=== PATIENT | female | born 1960 | race Caucasian/White ===

== ENCOUNTER → 2019-08-01 | Outpatient (CLI) | payer OTHER ==
[~2019-08-01] MED LIST: ASPIR 8181 MG PO; ATORVASTATIN CA40 MG PO; FISH OIL 1,001000 M2 PO; LEVAQUIN 500 M500 M1 PO; LOPRESSOR50 PO; METFORMIN HCL500 MG PO; NITROGLYCERIN0.4 MG SUBLING; PLAVIX 75 MG TA75 M1 PO; SIMVASTATIN40 MG PO; TESSALON PERLE100 MG PO; TRIAMTERENE-HC1 EAC1 PO; VITAMIN B-12500 MCG PO; VITAMINC500 PO; ZESTORETIC 10-1 EACH PO
--- NOTE | 2019-08-01 17:27 | EXE ---
[place] [address] STRESS ECHOCARDIOGRAM Name: VELIA ZAMORA Leighann Room: [facility]#: [id number] Admission: 08/01/19 Attend Phys: Wyatt Contreras MD Discharge: Date of : 56 Date of Service: 08/01/19 1726 Report #: [id number] THIS REPORT FOR: cc: Clarence Morrison Steve T. DO Blick, David R. MD [facility] ~ THIS REPORT FOR: //name// APPROVED REPORT Study performed: 08/01/2019 16:07:00 Exam: Dobutamine Stress Echo Indication: CAD Patient Location: Out-Patient Stress Nurse: Sharla Cano RN Supervising Physician: Wyatt Contreras MD Ht: 5 ft 4 in HR: 75 bpm BP: 116/66 mmHg Medical History Cardiac Risk Factors: Hyperlipidemia, HTN, DM, FHX of CAD Procedure The patient underwent a Pharmacological Stress Test using Dobutamine. Blood pressure, heart rate, and EKG were monitored. An Echocardiogram was performed by cell technician in four stages in quad fashion. At peak stress, four selected images were obtained and placed side by side with resting images for comparison. Stress Test Details Stress Test: Pharmacological Stress Test using Dobutamine. Reason for pharmacologic stress test: physical limitation. HR Resting HR: 75 bpm Max Heart Rate (APMHR): 160 bpm Max HR Achieved: 150 bpm Target HR (85% APMHR): 136 bpm % of APMHR: 93 Recovery HR: 85 bpm HR response to stress: [place] [address] STRESS ECHOCARDIOGRAM Name: JULYPOWERVELIA L Room: [facility]#: [id number] Admission: 08/01/19 Attend Phys: Wyatt Contreras MD Discharge: Date of : 56 Date of Service: 08/01/19 1726 Report #: [id number] Resting BP: 116/66 mmHg Max BP: 173/47 mmHg Recovery BP: 170/77 mmHg BP response to stress: Normal blood pressure response to stress. ECG Resting ECG: Sinus Rhythm Stress ECG: Sinus Rhythm ST Change: Upsloping ST depression Maximum ST Deviation: 1 mm Arrhythmia: None Recovery ECG: Sinus Rhythm Recovery ST Change: Downsloping ST depression Recovery ST Deviation: 0.5 mm Recovery Arrhythmia: None Pre-Stress Echo The resting Echocardiogram showed normal left ventricular contractility with an estimated Ejection Fraction of about 55-60%. Post-Stress Echo The stress Echocardiogram showed normal left ventricular contractility with an estimated Ejection Fraction of about >70%. Compared to rest, there were no stress-induced wall motion abnormalities. Conclusion Clinical Response: Non-ischemic Stress ECG Response: Equivocal Stress Echo Images: Non-ischemic low risk stress dobutamine echo for predicting future cardiac events. Other Information Study Quality: Fair <Conclusion> low risk stress dobutamine echo for predicting future cardiac events. <ELECTRONICALLY SIGNED> By: Wyatt Contreras MD, [facility] 08/01/19 1726 25 172 Wyatt Contreras MD, FAC /INF
== END ==
LOC: M.CRD 14:46
DX: I25.10 Atherosclerotic heart disease of native coronary artery without angina pectoris (principal); Z88.2 Allergy status to sulfonamides; Z88.6 Allergy status to analgesic agent

== ENCOUNTER 2019-08-23 16:14 | Inpatient (IN) | payer OTHER ==
[~2019-08-23] VITALS: Ht 162.6 cm; Wt 83.0 kg
[~2019-08-23 16:14] MED LIST changes: -ATORVASTATIN CA40 MG PO; +LIPITOR40 MG PO
[2019-08-23 16:23] VITALS: BP 147/72
[2019-08-23 16:45] LABS: ABSOLUTE EOSINOPHILS 0.2 thou/uL (0.0-0.7); ABSOLUTE LYMPHOCYTES 2.4 thou/uL (0.8-5.3); ABSOLUTE MONOCYTES 0.5 thou/uL (0.0-1.2); ABSOLUTE NEUTROPHILS 4.9 thou/uL (1.6-8.1); BASOPHILS 0.6 %; EOSINOPHILS 1.9 %; HEMATOCRIT 36.3 % (37.0-47.0); HEMOGLOBIN 12.5 gm/dL (12.0-15.0); LYMPHOCYTES 29.7 %; MCH 30.9 pg (26.0-34.0); MCHC 34.3 g/dL (28.0-37.0); MCV 90.1 fL (80.0-100.0); MONOCYTES 6.2 %; MPV 7.7 fl. (7.2-11.1); NUCLEATED RBCS 0 /100WBC; PLATELET COUNT* 295 thou/uL (150-400); POLYS 61.6 %; RBC 4.03 mil/uL (4.20-5.00); RDW-CV 13.1 % (10.5-14.5); WBC 7.9 thou/uL (4.0-11.0)
[2019-08-23 16:53] LABS: CALCIUM 9.2 mg/dL (8.5-10.1); CREATININE 1.1 mg/dL (0.6-1.3); POTASSIUM 3.8 mmol/L (3.5-5.1)
[2019-08-23 16:58] LABS: APTT 20.3 Seconds (25.0-31.3); PROTIME 10.7 Seconds (9.20-11.50)
[2019-08-23 17:04] LABS: MAGNESIUM 1.3 mg/dL (1.8-2.4); TOTAL BILIRUBIN 0.5 mg/dL (<0.1-1.0); TOTAL PROTEIN 7.1 g/dL (6.4-8.2)
--- NOTE | 2019-08-23 18:59 | NUR ---
REPORT GIVEN TO MAYRA THOMAS WHO IS TO ASSUME PT CARE AT THIS TIME.
--- NOTE | 2019-08-23 19:46 | NUR ---
REPORT CALLED TO JENNIFER PT TO BE TAKEN TO ROOM 208
[2019-08-23 20:00] VITALS: BP 146/71
--- NOTE | 2019-08-23 20:00 | NUR ---
RECEIVED REPORT FROM ER. PT TO ROOM WITH BELONGINGS AND AT BEDSIDE. PT DENIES ALL COMPLAINTS OF CHEST PAIN, SOB, DIAPHORESIS OR NAUSEA. TELEMETRY APPLIED SHOWING ST TO SR. SEE ADMISSION ASSESSMENT AND HX. DISCUSSED HAVING POSS TEST TOMORROW SO NPO AFTER MN. WILL CONT TO MONITOR AND ASSIST NEEDED.
[2019-08-23 20:07] VITALS: BP 144/79
[2019-08-23] MEDS ORDERED: TYLENOL (21:07)
[2019-08-23] MEDS ORDERED: TYLENOL325 M1 PO (21:08)
[2019-08-23] MEDS ORDERED: METFORMIN HCL500 MG PO (21:10)
[2019-08-23 23:14] LABS: CALCIUM 9.7 mg/dL (8.5-10.1); MAGNESIUM 1.5 mg/dL (1.8-2.4); POTASSIUM 3.5 mmol/L (3.5-5.1)
[2019-08-24 00:17] VITALS: BP 121/61
[2019-08-24 04:42] VITALS: BP 133/74
--- NOTE | 2019-08-24 06:20 | NUR ---
SLEPT WELL. GAIT STEADY TO AND FROM BR WITH STEADY GAIT. DENIES ANY COMPLAINTS. KEPT PT NPO SINCE [place] FOR POSS TEST THIS AM. HS GOALS OF REST AND SAFETY ACHIEVED. HOURLY ROUNDING OBSERVED.
[2019-08-24 08:00] VITALS: BP 130/77
[2019-08-24 12:29] VITALS: BP 130/77
--- NOTE | 2019-08-24 13:52 | CON ---
[address] [address] CONSULTATION Name: VELIA ZAMORA Room: [address] IN .R.#: [id number] Admission: 08/23/19 Attend Phys: Lizbet Zhao Discharge: Date of : 56 Report #: [id number] THIS REPORT FOR: //name// cc: Clarence Morrison Steve T. DO THIS REPORT FOR: //name// CC: Wyatt Brown DATE OF SERVICE: 08/24/2019 CARDIOLOGY CONSULTATION HISTORY OF PRESENT ILLNESS: The patient is a 58-year-old white female who I was asked to see in the hospital today after she was noted to be tachycardic. The patient initially presented in 2015 with chest pain. I placed a stent in her LAD. She has done well since that time. She goes to the gym regularly. She denied any recent chest pain, shortness of breath, syncope. I actually just saw her in Cardiology Clinic a month ago. She underwent a stress dobutamine echocardiogram 08/01. She could not exercise on the treadmill because of arthritis. Her peak heart rate was 150. She did develop nonspecific ST-segment changes with dobutamine stress. Ejection fraction was normal at rest. With dobutamine stress, there were no wall motion abnormalities with an ejection fraction greater than 70%. She denied any chest pain during dobutamine stress. This is felt to be a low-risk dobutamine stress echocardiogram for predicting future cardiac events. The patient was doing well until yesterday. She was at work. She noticed on her Fitbit that her heart rate was 115. She felt somewhat diaphoretic. Her son brought her to the hospital and she was admitted. Her blood sugar was noted to be elevated. She denied any recent vomiting, fever, diarrhea or bleeding. She had no chest discomfort, shortness of breath. PAST MEDICAL HISTORY: She has had a tonsillectomy, previous lumpectomy. She has a history of hypertension, diabetes, and hyperlipidemia. MEDICATIONS: Include aspirin, Lipitor, metformin, metoprolol, Maxzide. ALLERGIES: SHE HAS AN ALLERGY TO SULFA DRUGS. FAMILY HISTORY: Her mother had diabetes. SOCIAL HISTORY: She is . She and her live in [place]. 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 She is nonsmoker[place] [address] CONSULTATION Name: VELIA ZAMORA Room: [address]#: [id number] Admission: 08/23/19 Attend Phys: Lizbet Zhao Discharge: Date of : 56 Report #: [id number] REVIEW OF SYSTEMS: She has had no history of stroke, asthma, peptic ulcer disease, liver disease, kidney disease, cancer, psychiatric illness, chronic skin condition. PHYSICAL EXAMINATION: GENERAL: Revealed a middle-aged female, who appeared in no distress. VITAL SIGNS: Her blood pressure is 140/70, pulse is 90. She is afebrile. HEENT: She was anicteric. Conjunctivae are pink. Mucous membranes moist. NECK: Veins nondistended. No carotid bruits. CHEST: Clear to auscultation. CARDIOVASCULAR: Regular rate and rhythm, without murmur. ABDOMEN: Soft. EXTREMITIES: Had no edema. Dorsalis pedis pulse 2+ bilaterally. SKIN: Warm, dry. NEUROLOGIC: Nonfocal. RADIOLOGICAL DATA: Her ECG showed a sinus rhythm, nonspecific ST-segment changes were noted and compared to previous ECG in [address]-segment changes were less prominent. Her workup in the Emergency Room yesterday, she had a portable chest x-ray that showed normal heart size, clear lung merlos. LABORATORY DATA: Her lab work last night, sodium 139, BUN is 15, creatinine 1.0, glucose 228. Her liver function studies were normal. Troponins were all 0.06. BNP 66. Previous TSH in 2017 is 4.4. Her white blood cell count 7.9, hematocrit 36.3. IMPRESSION AND RECOMMENDATIONS: 1. Tachycardic. No significant arrhythmia noted. I would not treat at this time. 2. Episode of diaphoresis. Recent stress echocardiogram showed no evidence of ischemia. 3. Previous stent. I would continue aspirin a day. 4. Hypertension. The patient is on a beta garret and diuretic. Because of her vascular disease, I will consider adding an JESSICA inhibitor. 5. Diabetes. 6. Hyperlipidemia. The patient is on a statin drug. I think it is reasonable to discharge the patient at this time. I have recommended she will follow up with my nurse practitioner. <ELECTRONICALLY SIGNED> By: Wyatt Contreras MD, FACC 08/24/19 1352 0821 [id number] Contreras MD, FACC /nt
--- NOTE | 2019-08-24 17:28 | NUR ---
PATIENT DISCHARGED TO HOME DISCHARGE INFORMATION GIVEN, ACKNOWLEDGED, SIGNED COPIES GIVEN IV AND HEART MONITOR REMOVED PERSONAL BELONGINGS RETURNED PATIENT WALKED OUT TO [employer]
--- NOTE | 2019-08-31 14:58 | EKG ---
[place] [address] ELECTROCARDIOGRAM REPORT Name: VELIA ZAMORA Room: [address] IN .R.#: [id number] Admission: 08/23/19 Attend Phys: Randell Vaughn Discharge: 08/24/19 Date of : 56 Date of Service: 08/23/19 1620 Report #: [id number] THIS REPORT FOR: //name// [facility] ED Test Date: 2019-08-23 Test Time: 16:20:01 Pat Name: VELIA ZAMORA Department: Room: [facility] Gender: F Pen Tester: ROBERT : 1960 Requested By: Pa Barron Order Number: [id number] MD: Wyatt Contreras Measurements Intervals [place] Rate: 90 P: 68 OR: 130 QRS: 78 QRSD: 90 T: 44 QT: 366 QTc: 448 Interpretive Statements Sinus rhythm Consider left atrial enlargement Borderline T wave abnormalities Compared to ECG 06/13/2016 16:35:26 Possible ischemia no longer present Prolonged QT interval no longer present Electronically Signed On 08-24-2019 9:39:14 [employer] ARCHITECT by Wyatt Contreras [email or web address] <ELECTRONICALLY SIGNED> By: Wyatt Contreras MD, FACC 08/24/19 0939 1620 1620 Wyatt Contreras MD, FAC /EPI
== END 2019-08-24 17:30 | disposition home or self-care (01) | DRG 310 ==
LOC: M.ERS 16:14 → M.2W 17:38 → M.TBA-ER 17:38 → M.2W 20:35
PROVIDERS: Emergency Medicine Emergency Medical Services; ADMIT Internal Medicine
DX: R00.0 Tachycardia, unspecified (principal); E88.81 Metabolic syndrome and other insulin resistance; E11.9 Type 2 diabetes mellitus without complications; I25.10 Atherosclerotic heart disease of native coronary artery without angina pectoris; F41.9 Anxiety disorder, unspecified; E78.00 Pure hypercholesterolemia, unspecified; I10 Essential (primary) hypertension; M19.90 Unspecified osteoarthritis, unspecified site; R61 Generalized hyperhidrosis; E78.5 Hyperlipidemia, unspecified; F12.90 Cannabis use, unspecified, uncomplicated; Z95.5 Presence of coronary angioplasty implant and graft; Z79.84 Long term (current) use of oral hypoglycemic drugs; Z79.899 Other long term (current) drug therapy; Z88.1 Allergy status to other antibiotic agents; Z88.2 Allergy status to sulfonamides; Z79.82 Long term (current) use of aspirin; Z83.3 Family history of diabetes mellitus; Z85.828 Personal history of other malignant neoplasm of skin; Z85.89 Personal history of malignant neoplasm of other organs and systems; Z72.89 Other problems related to lifestyle

== ENCOUNTER 2019-08-25 10:27 | Inpatient (IN) | payer OTHER ==
[~2019-08-25] VITALS: Ht 162.6 cm; Wt 89.4 kg
[~2019-08-25 10:27] MED LIST changes: +TYLENOL; +TYLENOL325 M1 PO
[2019-08-25 10:35] VITALS: BP 128/57
[2019-08-25 11:24] LABS: ABSOLUTE LYMPHOCYTES 1.5 thou/uL (0.8-5.3); ABSOLUTE MONOCYTES 0.5 thou/uL (0.0-1.2); ABSOLUTE NEUTROPHILS 10.5 thou/uL (1.6-8.1); BASOPHILS 0.3 %; EOSINOPHILS 0.2 %; HEMATOCRIT 26.5 % (37.0-47.0); LYMPHOCYTES 11.6 %; MCH 30.7 pg (26.0-34.0); MCHC 33.6 g/dL (28.0-37.0); MCV 91.3 fL (80.0-100.0); MONOCYTES 3.9 %; MPV 7.7 fl. (7.2-11.1); NUCLEATED RBCS 0 /100WBC; PLATELET COUNT* 304 thou/uL (150-400); RDW-CV 13.4 % (10.5-14.5); WBC 12.5 thou/uL (4.0-11.0)
[2019-08-25 11:25] LABS: HEMOGLOBIN 8.9 gm/dL (12.0-15.0)
[2019-08-25 11:32] LABS: CALCIUM 8.6 mg/dL (8.5-10.1); CREATININE 1.1 mg/dL (0.6-1.3)
[2019-08-25 11:33] LABS: APTT 20.9 Seconds (25.0-31.3); PROTIME 10.5 Seconds (9.20-11.50)
[2019-08-25 11:43] LABS: ALBUMIN 3.5 g/dL (3.4-5.0); TOTAL BILIRUBIN 0.2 mg/dL (<0.1-1.0); TOTAL PROTEIN 6.3 g/dL (6.4-8.2)
[2019-08-25 13:40] LABS: URINE BILIRUBIN NEGATIVE (Negative); URINE BLOOD NEGATIVE (Negative); URINE CLARITY CLEAR; URINE COLOR YELLOW; URINE GLUCOSE-RANDOM 1+ (Negative); URINE KETONES TRACE (Negative); URINE LEUKOCYTES-REFLEX NEGATIVE (Negative); URINE NITRITE-REFLEX NEGATIVE (Negative); URINE PROTEIN NEGATIVE (Negative); URINE SPECIFIC GRAVITY <= 1.005 (1.005-1.030); URINE UROBILINOGEN 0.2 E.U./dl (0.2-1.0)
[2019-08-25 18:04] VITALS: BP 116/63
[2019-08-25 19:45] VITALS: BP 104/57
[2019-08-25 20:30] VITALS: BP 122/63
[2019-08-26] VITALS (9 sets, daily range): BP systolic 106–146; BP diastolic 54–66
[2019-08-26 04:44] LABS: MCH 31.6 pg (26.0-34.0); MCHC 34.1 g/dL (28.0-37.0); MCV 92.8 fL (80.0-100.0); MPV 7.9 fl. (7.2-11.1); RBC 1.43 mil/uL (4.20-5.00); RDW-CV 13.3 % (10.5-14.5)
[2019-08-26 04:44] LABS: AMP/METHAMP Negative (Negative); BARBITURATES Negative (Negative); BENZODIAZEPINES Negative (Negative); COCAINE Negative (Negative); METHADONE Negative (Negative); OPIATES Negative (Negative); PCP Negative (Negative); THC Negative (Negative)
[2019-08-26 04:53] LABS: INR 1.1; PROTIME 11.5 Seconds (9.20-11.50)
[2019-08-26 05:09] LABS: HEMATOCRIT 13.3 % (37.0-47.0); HEMOGLOBIN 4.5 gm/dL (12.0-15.0)
[2019-08-26 06:49] LABS: HEMOGLOBIN 4.3 gm/dL (12.0-15.0)
[2019-08-26 06:50] LABS: HEMATOCRIT 12.5 % (37.0-47.0)
[2019-08-26 07:10] LABS: ALBUMIN 2.7 g/dL (3.4-5.0); CALCIUM 7.1 mg/dL (8.5-10.1); CREATININE 0.9 mg/dL (0.6-1.3); MAGNESIUM 1.5 mg/dL (1.8-2.4); PHOSPHORUS* 2.6 mg/dL (2.5-4.9); POTASSIUM 3.6 mmol/L (3.5-5.1)
[2019-08-26 15:46] LABS: MCH 31.2 pg (26.0-34.0); MCHC 34.8 g/dL (28.0-37.0); MCV 89.6 fL (80.0-100.0); MPV 7.8 fl. (7.2-11.1); RBC 1.99 mil/uL (4.20-5.00); RDW-CV 14.3 % (10.5-14.5); WBC 10.8 thou/uL (4.0-11.0)
[2019-08-26 15:50] LABS: HEMATOCRIT 17.9 % (37.0-47.0); HEMOGLOBIN 6.2 gm/dL (12.0-15.0)
[2019-08-26 23:03] LABS: MCH 29.6 pg (26.0-34.0); MCHC 33.4 g/dL (28.0-37.0); MCV 88.5 fL (80.0-100.0); MPV 8.1 fl. (7.2-11.1); RBC 1.87 mil/uL (4.20-5.00); RDW-CV 16.1 % (10.5-14.5)
[2019-08-26 23:05] LABS: HEMOGLOBIN 5.5 gm/dL (12.0-15.0)
[2019-08-26 23:06] LABS: HEMATOCRIT 16.5 % (37.0-47.0)
[2019-08-27 00:51] VITALS: BP 110/48; BP 117/64; BP 135/63; BP 138/68
[2019-08-27 05:30] LABS: MCH 28.8 pg (26.0-34.0); MCHC 33.3 g/dL (28.0-37.0); MCV 86.5 fL (80.0-100.0); MPV 7.8 fl. (7.2-11.1); RBC 2.07 mil/uL (4.20-5.00); WBC 16.6 thou/uL (4.0-11.0)
[2019-08-27 05:42] LABS: HEMATOCRIT 17.9 % (37.0-47.0)
[2019-08-27 06:22] VITALS: BP 130/76; BP 132/51; BP 132/69; BP 141/71; BP 149/75
[2019-08-27 08:00] VITALS: BP 130/76
[2019-08-27 14:38] LABS: MCH 29.5 pg (26.0-34.0); MCV 86.8 fL (80.0-100.0); RBC 2.1 mil/uL (4.20-5.00); RDW-CV 15.2 % (10.5-14.5); WBC 12.5 thou/uL (4.0-11.0)
[2019-08-27 14:40] LABS: HEMATOCRIT 18.2 % (37.0-47.0); HEMOGLOBIN 6.2 gm/dL (12.0-15.0)
[2019-08-27 16:40] VITALS: BP 129/54
[2019-08-27 19:02] LABS: HEMATOCRIT 16.8 % (37.0-47.0); HEMOGLOBIN 5.7 gm/dL (12.0-15.0)
[2019-08-27 19:43] VITALS: BP 104/56; BP 108/58; BP 112/60; BP 115/57; BP 119/57
[2019-08-27 19:45] VITALS: BP 119/57
[2019-08-27 23:21] LABS: MCH 29.8 pg (26.0-34.0); MCHC 34.6 g/dL (28.0-37.0); MCV 86.2 fL (80.0-100.0); MPV 7.5 fl. (7.2-11.1); NUCLEATED RBCS 0 /100WBC; PLATELET COUNT* 107 thou/uL (150-400); RDW-CV 14.6 % (10.5-14.5); WBC 9.9 thou/uL (4.0-11.0)
[2019-08-27 23:24] LABS: HEMOGLOBIN 6.6 gm/dL (12.0-15.0)
[2019-08-28] VITALS: BP 133/56
[2019-08-28 00:39] VITALS: BP 107/55; BP 108/59; BP 114/52; BP 116/66; BP 117/52
[2019-08-28 01:16] LABS: ABSOLUTE EOSINOPHILS 0.4 thou/uL (0.0-0.7); ABSOLUTE LYMPHOCYTES 1.5 thou/uL (0.8-5.3); ABSOLUTE MONOCYTES 0.9 thou/uL (0.0-1.2); ABSOLUTE NEUTROPHILS 7.1 thou/uL (1.6-8.1)
[2019-08-28 01:17] LABS: PLATELET ESTIMATE DECREASED
[2019-08-28 01:18] LABS: ANISOCYTOSIS 1+; POLYCHROMASIA 1+
[2019-08-28 04:00] VITALS: BP 107/57; BP 129/52
[2019-08-28 06:11] LABS: HEMATOCRIT 22.4 % (37.0-47.0); HEMOGLOBIN 7.7 gm/dL (12.0-15.0); MCH 29.5 pg (26.0-34.0); MCHC 34.5 g/dL (28.0-37.0); MCV 85.4 fL (80.0-100.0); MPV 7.4 fl. (7.2-11.1); RBC 2.62 mil/uL (4.20-5.00); RDW-CV 14.5 % (10.5-14.5); WBC 9.3 thou/uL (4.0-11.0)
[2019-08-28 06:26] LABS: CALCIUM 6.7 mg/dL (8.5-10.1); CREATININE 0.6 mg/dL (0.6-1.3); POTASSIUM 3.1 mmol/L (3.5-5.1); TOTAL BILIRUBIN 0.4 mg/dL (<0.1-1.0); TOTAL PROTEIN 3.9 g/dL (6.4-8.2)
[2019-08-28 08:00] VITALS: BP 124/58
[2019-08-28 11:19] VITALS: BP 123/61
[2019-08-28 20:00] VITALS: BP 119/56
[2019-08-29] VITALS: BP 130/70
[2019-08-29 04:00] VITALS: BP 134/61
[2019-08-29 05:15] LABS: HEMATOCRIT 22.2 % (37.0-47.0); HEMOGLOBIN 7.6 gm/dL (12.0-15.0); MCHC 34.4 g/dL (28.0-37.0); MCV 87.1 fL (80.0-100.0); MPV 7.5 fl. (7.2-11.1); RBC 2.55 mil/uL (4.20-5.00); RDW-CV 14.3 % (10.5-14.5); WBC 5.9 thou/uL (4.0-11.0)
[2019-08-29 05:29] LABS: ALBUMIN 2.1 g/dL (3.4-5.0); CALCIUM 6.9 mg/dL (8.5-10.1); CREATININE 0.7 mg/dL (0.6-1.3); TOTAL BILIRUBIN 0.3 mg/dL (<0.1-1.0); TOTAL PROTEIN 4.3 g/dL (6.4-8.2)
[2019-08-29 05:31] LABS: POTASSIUM 2.9 mmol/L (3.5-5.1)
[2019-08-29 08:00] VITALS: BP 137/58
[2019-08-29] MEDS ORDERED: LASIX 40 MG TAB40 M1 PO (10:56)
[2019-08-29] MEDS ORDERED: XANAX 0.25 MG0.25 MG PO (10:56)
[2019-08-29 11:19] VITALS: BP 138/68
[2019-08-29 12:46] VITALS: BP 138/68
[2019-08-29 16:31] VITALS: BP 137/68
--- NOTE | 2019-08-31 14:59 | EKG ---
[place] [address] ELECTROCARDIOGRAM REPORT Name: OBEYVELIA CONROY Leighann Room: [address] IN M.R.#: [id number] Admission: 08/25/19 Attend Phys: Raj phipps Sa Discharge: 08/29/19 Date of : 56 Date of Service: 08/25/19 1051 Report #: [id number] THIS REPORT FOR: //name// [facility] ED Test Date: 2019-08-25 Test Time: 10:51:14 Pat Name: VELIA ZAMORA Department: Room: [facility] Gender: F Superintendent [employer]: : 1960 Requested By: Juan Carlos Hassan Order Number: [id number] MD: Wyatt Contreras Measurements Intervals [place] Rate: 89 P: 52 VA: 136 QRS: 44 QRSD: 92 T: 268 QT: 379 QTc: 462 Interpretive Statements Sinus rhythm Nonspecific T abnormalities, diffuse leads Compared to ECG 08/23/2019 16:20:01 No significant changes Electronically Signed On 08-26-2019 11:04:26 PHYSICAL SECURITY ENGINEER by Wyatt Contreras [email or web address] <ELECTRONICALLY SIGNED> By: Wyatt Contreras MD, [facility] 08/26/19 1104 1051 1051 Wyatt Contreras MD, [facility] /EPI
--- NOTE | 2019-09-04 13:54 | CON ---
[address] [address] CONSULTATION Name: VELIA ZAMORA Room: [address] M.R.#: [id number] Admission: 08/25/19 Attend Phys: Raj Rapp Discharge: 08/29/19 Date of : 56 Report #: [id number] THIS REPORT FOR: //name// cc: Clarence Morrison Steve T. DO THIS REPORT FOR: //name// CC: Wyatt Munguia DO DATE OF SERVICE: 08/26/2019 REQUESTING PHYSICIAN: Dr. Ochoa. REASON FOR CONSULT: Melanotic stool and significant drop in hemoglobin. HISTORY OF PRESENT ILLNESS: This is a 58-year-old female with history of coronary artery disease, status post stenting in 2016, who reports that she took Plavix for a year, but currently is only on baby aspirin and fish oil. She was recently in the hospital for chest pain, which was noncardiac and she was discharged shortly after. Her hemoglobin on that day was 12.7. The patient was not feeling good and had melanotic stool, therefore she returned to hospital. Her hemoglobin in the ER was 8.9. She was admitted for GI bleed and today, her hemoglobin is 4.3. The patient denies any nausea, vomiting, hematemesis or abdominal pain. PAST MEDICAL HISTORY: Significant for history of diabetes mellitus, hypertension, coronary artery disease, status post stenting, anemia, hyperlipidemia, skin cancer. ALLERGIES: SIGNIFICANT TO BACTRIM. MEDICATIONS: Please refer to MAR. SOCIAL HISTORY: The patient is and lives at home. Denies tobacco or alcohol use. She reports that she had a colonoscopy in April by Dr. Ramos. PHYSICAL EXAMINATION: VITAL SIGNS: Reveals normal vitals. LUNGS: Clear. CARDIOVASCULAR: Regular. ABDOMEN: Soft, nontender, nondistended[place] [address] CONSULTATION Name: VELIA ZAMORA Room: [address] IN ..#: [id number] Admission: 08/25/19 Attend Phys: Raj phipps [place] Discharge: 08/29/19 Date of : 56 Report #: [id number] LABORATORY DATA: Reveal sodium of 146, potassium of 3.6, BUN 33, creatinine 0.9, glucose 279. Liver function tests are all within normal limits. Magnesium is low at 1.5, calcium is 7.1, albumin is 2.7. WBC is 10.0, hemoglobin 4.3, but she has been transfused with 2 units and platelet is 187. ASSESSMENT AND PLAN: We will complete the patient's transfusion to get her hemoglobin above 7 and consider upper endoscopy. If we do not find anything, we will consider looking at her colon and if negative, we will proceed with capsule endoscopy. I will make further recommendation based on finding in the upper scope. <ELECTRONICALLY SIGNED> By: Georgia Arciniega MD 09/04/19 1354 1123 [id number] Arciniega MD /nt
== END 2019-08-29 18:17 | disposition home or self-care (01) | DRG 377 ==
LOC: M.ERS 10:27 → M.TBA-ER 14:04 → M.2W 14:04
PROVIDERS: Family Medicine; Internal Medicine; Internal Medicine Gastroenterology; ADMIT Family Medicine
PROC: 30233N1 Transfusion of Nonautologous Red Blood Cells into Peripheral Vein, Percutaneous Approach (ICD-10-PCS; principal; 2019-08-26)
PROC: 0DJ08ZZ Inspection of Upper Intestinal Tract, Via Natural or Artificial Opening Endoscopic (ICD-10-PCS; 2019-08-28)
DX: K57.11 Diverticulosis of small intestine without perforation or abscess with bleeding (principal); R65.11 Systemic inflammatory response syndrome (SIRS) of non-infectious origin with acute organ dysfunction; D62 Acute posthemorrhagic anemia; E87.2 Acidosis; E44.1 Mild protein-calorie malnutrition; E11.9 Type 2 diabetes mellitus without complications; E78.00 Pure hypercholesterolemia, unspecified; I10 Essential (primary) hypertension; I25.10 Atherosclerotic heart disease of native coronary artery without angina pectoris; E78.5 Hyperlipidemia, unspecified; E66.9 Obesity, unspecified; K76.0 Fatty (change of) liver, not elsewhere classified; K44.9 Diaphragmatic hernia without obstruction or gangrene; Z68.33 Body mass index [BMI] 33.0-33.9, adult; Z95.5 Presence of coronary angioplasty implant and graft; Z79.82 Long term (current) use of aspirin; Z79.84 Long term (current) use of oral hypoglycemic drugs; Z79.899 Other long term (current) drug therapy; Z88.2 Allergy status to sulfonamides; Z88.8 Allergy status to other drugs, medicaments and biological substances

== ENCOUNTER 2019-08-31 14:53 | Inpatient (IN) | payer OTHER ==
[~2019-08-31] VITALS: Ht 162.6 cm; Wt 86.8 kg
[~2019-08-31 14:53] MED LIST changes: +LASIX 40 MG TAB40 M1 PO; +XANAX 0.25 MG0.25 MG PO
[2019-08-31 15:01] VITALS: BP 96/54
[2019-08-31] MEDS ORDERED: PROTONIX40 M4 PO (15:04)
[2019-08-31 16:00] LABS: ABSOLUTE EOSINOPHILS 0.2 thou/uL (0.0-0.7); ABSOLUTE LYMPHOCYTES 1.5 thou/uL (0.8-5.3); ABSOLUTE MONOCYTES 0.7 thou/uL (0.0-1.2); ABSOLUTE NEUTROPHILS 8.8 thou/uL (1.6-8.1); BASOPHILS 0.2 %; EOSINOPHILS 1.5 %; HEMATOCRIT 21.4 % (37.0-47.0); LYMPHOCYTES 13.5 %; MCH 29.4 pg (26.0-34.0); MCHC 32.6 g/dL (28.0-37.0); MCV 90.2 fL (80.0-100.0); MPV 8.6 fl. (7.2-11.1); NUCLEATED RBCS 0 /100WBC; PLATELET COUNT* 234 thou/uL (150-400); POLYS 78.8 %; RBC 2.38 mil/uL (4.20-5.00); RDW-CV 14.8 % (10.5-14.5); WBC 11.2 thou/uL (4.0-11.0)
[2019-08-31 16:09] LABS: CALCIUM 8.3 mg/dL (8.5-10.1); CREATININE 1.1 mg/dL (0.6-1.3); POTASSIUM 3.1 mmol/L (3.5-5.1)
[2019-08-31 16:10] LABS: APTT 19.6 Seconds (25.0-31.3); INR 0.9; PROTIME 9.6 Seconds (9.20-11.50)
[2019-08-31 16:13] LABS: ALBUMIN 2.8 g/dL (3.4-5.0); TOTAL BILIRUBIN 0.4 mg/dL (<0.1-1.0); TOTAL PROTEIN 5.6 g/dL (6.4-8.2)
[2019-08-31 16:16] LABS: URINE BILIRUBIN NEGATIVE (Negative); URINE BLOOD NEGATIVE (Negative); URINE CLARITY CLEAR; URINE COLOR YELLOW; URINE GLUCOSE-RANDOM 1+ (Negative); URINE KETONES TRACE (Negative); URINE LEUKOCYTES-REFLEX NEGATIVE (Negative); URINE NITRITE-REFLEX NEGATIVE (Negative); URINE PROTEIN NEGATIVE (Negative); URINE UROBILINOGEN 0.2 E.U./dl (0.2-1.0)
--- NOTE | 2019-08-31 17:10 | NUR ---
DISCUSSED WITH CHAIREZ ABOUT SCANS AND TRANSFUSION OF PRBCS. HAS INSTRUVTED TO PERFORM NUCLEAR MED SCAN AND CAT SCAN THEN TRANSFUSE THE UNIT OF BLOOD ORDERED
--- NOTE | 2019-08-31 20:15 | NUR ---
BLOOD TRANSUSION UNIT [id number] STARTED ORDERED.
[2019-08-31 22:35] VITALS: BP 116/57
[2019-08-31 22:41] LABS: % SATURATION 23 % (20-39); IRON 65 ug/dL (50-175)
[2019-08-31 22:44] VITALS: BP 110/58
[2019-08-31 23:18] VITALS: BP 107/51
[2019-09-01] VITALS (7 sets, daily range): BP systolic 110–137; BP diastolic 50–78
--- NOTE | 2019-09-01 00:30 | NUR ---
PT ARRIVED TO UNIT VIA ER CART AT 2230. PT AAOX4, ORIENTED TO ROOM AND CALL LIGHT. TEAR DOWN MATCHER IN PLACE, TRACING SR/ST. 1 UNIT PRBC INFUSING UPON ARRIVAL. PT CONTINUES TO HAVE BLOODY STOOLS. NURSING ASSESSMENT COMPLETED. HIGH FALL PRECAUTIONS IN PLACE. CALL LIGHT WITHIN REACH.
[2019-09-01 00:47] LABS: HEMATOCRIT 20.9 % (37.0-47.0)
--- NOTE | 2019-09-01 05:26 | NUR ---
PATIENT RECEIVING ANOTHER UNIT OF BLOOD AT THIS TIME AFTER REDRAW POST PREVIOUS TRANSFUSION WAS 7.0. TOLERATING TRANFUSION WELL. PATIENT CONTINUES TO HAVE BLOODY STOOLS. PATIENT C/O ABDOMINAL CRAMPING. MEDICATION ADMINISTERED PER MAR WITH SOME IMPROVEMENT. PATIENT CONTINUES TO BE NPO, UTILIZING MOUTH SWABS. CALL LIGHT WITHIN REACH
[2019-09-01 07:59] LABS: HEMATOCRIT 22.3 % (37.0-47.0); HEMOGLOBIN 7.4 gm/dL (12.0-15.0); MCHC 33.1 g/dL (28.0-37.0); MCV 90.5 fL (80.0-100.0); MPV 8.2 fl. (7.2-11.1); RBC 2.46 mil/uL (4.20-5.00); RDW-CV 14.2 % (10.5-14.5); WBC 10.1 thou/uL (4.0-11.0)
[2019-09-01 08:34] LABS: CALCIUM 7.3 mg/dL (8.5-10.1); CREATININE 0.8 mg/dL (0.6-1.3); MAGNESIUM 1.6 mg/dL (1.8-2.4); POTASSIUM 3.8 mmol/L (3.5-5.1)
[2019-09-01 10:34] LABS: APTT 19.4 Seconds (25.0-31.3); PROTIME 10.4 Seconds (9.20-11.50)
--- NOTE | 2019-09-01 12:56 | EKG ---
[place] [address] ELECTROCARDIOGRAM REPORT Name: VELIA ZAMORA Room: [address] ADM IN M.R.#: [id number] Admission: 08/31/19 Attend Phys: Raj phipps Sa Discharge: Date of : 56 Date of Service: 08/31/19 1530 Report #: [id number] THIS REPORT FOR: //name// [facility] ED Test Date: 2019-08-31 Test Time: 15:30:59 Pat Name: VELIA ZAMORA Department: Room: [facility] Gender: F Occasional Babysitter: : 1960 Requested By: Harris Gimenez Order Number: [id number] MD: Wyatt Contreras Measurements Intervals [place] Rate: 103 P: 48 MS: 126 QRS: 39 QRSD: 89 T: QT: 335 QTc: 439 Interpretive Statements Sinus tachycardia Borderline T abnormalities, diffuse leads Baseline wander in lead(s) V6 Compared to ECG 08/25/2019 10:51:14 Sinus rhythm no longer present T-wave abnormality still present Electronically Signed On 09-01-2019 12:55:51 ANODIC TREATER by Wyatt Contreras [email or web address] <ELECTRONICALLY SIGNED> By: Wyatt Contreras MD, FACC 09/01/19 1255 1530 1530 Wyatt Contreras MD, FAC /EPI
--- NOTE | 2019-09-01 14:57 | NUR ---
STOOLS REMAIN MAROON COLORED. PLAN IS FOR CTA THIS EVENING ABOUT 1800.
[2019-09-01 15:53] LABS: HEMATOCRIT 25.4 % (37.0-47.0); HEMOGLOBIN 8.7 gm/dL (12.0-15.0)
[2019-09-01 16:06] LABS: MAGNESIUM 2.1 mg/dL (1.8-2.4); POTASSIUM 3.6 mmol/L (3.5-5.1)
--- NOTE | 2019-09-01 18:12 | NUR ---
PATIENT PROGRESSING TOWARDS GOALS.HEMOGLOBIN STABILIZING. FEEWER STOOLS. ELECTROLYTES REPLACED. TOLERATING CLEAR LIQUID DIET. AWAITING REPEAT CTA OF ABDOMEN. SPOUSE HAS VISITED.
[2019-09-01 21:14] LABS: HEMATOCRIT 22.5 % (37.0-47.0); HEMOGLOBIN 7.7 gm/dL (12.0-15.0)
[2019-09-02] VITALS (8 sets, daily range): BP systolic 93–133; BP diastolic 40–68
[2019-09-02 05:20] LABS: HEMATOCRIT 22.9 % (37.0-47.0); HEMOGLOBIN 7.8 gm/dL (12.0-15.0); MCH 30.8 pg (26.0-34.0); MCHC 33.9 g/dL (28.0-37.0); MCV 90.8 fL (80.0-100.0); MPV 7.9 fl. (7.2-11.1); RBC 2.52 mil/uL (4.20-5.00); RDW-CV 14.6 % (10.5-14.5); WBC 6.8 thou/uL (4.0-11.0)
[2019-09-02 05:38] LABS: ALBUMIN 2.3 g/dL (3.4-5.0); CALCIUM 7.4 mg/dL (8.5-10.1); CREATININE 0.8 mg/dL (0.6-1.3); PHOSPHORUS* 2.7 mg/dL (2.5-4.9); POTASSIUM 3.4 mmol/L (3.5-5.1)
--- NOTE | 2019-09-02 06:12 | NUR ---
PATIENT PROGRESSING TOWARDS GOALS: NO BLOODY STOOLS OVERNIGHT. PATIENT'S HEART RATE IMPROVED FROM PRIOR SHIFTS. PATIENT HAS GOOD APPETITE AND WANTING DIET TO BE ADVANCED. INFORMED PATIENT THAT GI WILL HAVE TO CLEAR HER FOR ADVANCEMENT. CLEAR LIQUIDS PROVIDED THIS SHIFT. CALL LIGHT WITHIN REACH
--- NOTE | 2019-09-02 15:18 | NUR ---
ASSUMED PT CARE AT 0800, AOX4, UP WITH ASSIST, O2 SAT 90'S RA. TRACING SR ON TELE. PT DENIES PAIN. PT ANXIOUS THIS AM ABOUT WHAT THE NEXT STEP/PLAN OF CARE. NO EPISODE OF BLOODY STOOL THIS SHIFT. DIET ADVANCED TO FULL LIQUID PER GI. IVF INFUSSING ORDERED. PT ACCU CHECK. MEDS GIVEN PER MAR, AM ASSESSMENT CHARTED, HOURLY ROUNDING, CALL LIGHT WITHIN REACH, WILL CONTINUE TO MONITOR.
[2019-09-02 18:52] LABS: ABSOLUTE EOSINOPHILS 0.3 thou/uL (0.0-0.7); ABSOLUTE LYMPHOCYTES 1.8 thou/uL (0.8-5.3); ABSOLUTE MONOCYTES 0.6 thou/uL (0.0-1.2); ABSOLUTE NEUTROPHILS 4.4 thou/uL (1.6-8.1); BASOPHILS 0.5 %; EOSINOPHILS 4.6 %; HEMATOCRIT 20.2 % (37.0-47.0); LYMPHOCYTES 25.6 %; MCH 30.9 pg (26.0-34.0); MCHC 33.5 g/dL (28.0-37.0); MCV 92.3 fL (80.0-100.0); MONOCYTES 7.7 %; NUCLEATED RBCS 1 /100WBC; PLATELET COUNT* 221 thou/uL (150-400); POLYS 61.6 %; RBC 2.19 mil/uL (4.20-5.00); RDW-CV 14.7 % (10.5-14.5); WBC 7.2 thou/uL (4.0-11.0)
[2019-09-02 18:59] LABS: HEMOGLOBIN 6.8 gm/dL (12.0-15.0)
[2019-09-03 00:25] VITALS: BP 127/59
[2019-09-03 02:02] LABS: ABSOLUTE EOSINOPHILS 0.3 thou/uL (0.0-0.7); ABSOLUTE LYMPHOCYTES 1.7 thou/uL (0.8-5.3); ABSOLUTE MONOCYTES 0.5 thou/uL (0.0-1.2); ABSOLUTE NEUTROPHILS 3.4 thou/uL (1.6-8.1); BASOPHILS 0.5 %; EOSINOPHILS 4.3 %; HEMATOCRIT 22.9 % (37.0-47.0); HEMOGLOBIN 7.7 gm/dL (12.0-15.0); LYMPHOCYTES 28.9 %; MCH 30.7 pg (26.0-34.0); MCHC 33.9 g/dL (28.0-37.0); MCV 90.6 fL (80.0-100.0); MONOCYTES 8.7 %; MPV 7.9 fl. (7.2-11.1); NUCLEATED RBCS 0 /100WBC; PLATELET COUNT* 199 thou/uL (150-400); POLYS 57.6 %; RBC 2.52 mil/uL (4.20-5.00); RDW-CV 15.2 % (10.5-14.5); WBC 5.9 thou/uL (4.0-11.0)
[2019-09-03 04:00] VITALS: BP 141/69
--- NOTE | 2019-09-03 04:50 | NUR ---
PATIENT VERY ANXIOUS AND TEARFUL THIS SHIFT. KEEPS ASKING "WHAT IS WRONG WITH ME?" AND "WHY CAN THEY NOT FIND WHERE THE BLEED IS COMING FROM." REASSURANCE AND EDUCATION PROVIDED. PATIENT REQUESTED AN ADDITIONAL DOES OF ANTI-ANXIETY MEDICATION. SHE WAS NOT DUE FOR ADMISTRATION OF XANAX AT THAT TIME. PHYSICIAN PAGED AND ONETIME ORDER RECEIVED. MEDICATION APPEARS TO BE AFFECTIVE PATIENT HAS BEEN ABLE TO GET SOME SLEEP SINCE ADMINISTRATION. PATIENT REQUIRED A UNIT OF RBC OVERNIGHT, TOLERATED TRANFUSION WELL. PER PATIENT, DOCTOR TOLD HER SHE WOULD PROBABY TRANSFER TO ICU TODAY FOR THEM TO "MAKE HER BLEED AGAIN" THEN PROCEED WITH AN IMMEDIATE SCAN. CALL LIGHT WITHIN REACH.
[2019-09-03 08:00] VITALS: BP 128/65
--- NOTE | 2019-09-03 11:15 | NUR ---
Pt is A&O. Resides at home with her . Known to this CM from previous hospital stay last week. Pt dc to home on 08/28, declined HH at that time. No DME. No hx of HH or SNF. Goal is to return home at dc. GI following.
[2019-09-03 11:39] LABS: ABSOLUTE EOSINOPHILS 0.2 thou/uL (0.0-0.7); ABSOLUTE MONOCYTES 0.4 thou/uL (0.0-1.2); ABSOLUTE NEUTROPHILS 4.2 thou/uL (1.6-8.1); BASOPHILS 0.5 %; EOSINOPHILS 3.7 %; HEMATOCRIT 21.4 % (37.0-47.0); LYMPHOCYTES 16.6 %; MCH 30.3 pg (26.0-34.0); MCHC 32.9 g/dL (28.0-37.0); MONOCYTES 6.9 %; NUCLEATED RBCS 0 /100WBC; PLATELET COUNT* 215 thou/uL (150-400); POLYS 72.3 %; RBC 2.33 mil/uL (4.20-5.00); WBC 5.9 thou/uL (4.0-11.0)
[2019-09-03 12:12] VITALS: BP 115/63
[2019-09-03 15:03] VITALS: BP 125/55; BP 128/62
[2019-09-03 18:06] LABS: HEMATOCRIT 25.7 % (37.0-47.0); HEMOGLOBIN 8.6 gm/dL (12.0-15.0)
[2019-09-03 19:50] VITALS: BP 116/64
--- NOTE | 2019-09-03 21:35 | NUR ---
RECEIVED REPORT. ASSUMED CARE OF PT AROUND 729. PT A&O X4. TODDLER NANNY IN PLACE TRACING SR. AM ASSESSMENT AND VITALS COMPLETED CHARTED. IV INTACT. MEDS PER EMAR. PT WITH MULTIPLE EPISODES OF LIQUID BLACK/TARRY STOOL THIS SHIFT. HGB DOWN TO 7.0, 1 UNIT PRBC'S TRANSFUSED. HGB UP TO 8.6. PT COMPLETED SMALL BOWEL SERIES. PLAN IS FOR PT TO TRANSFER TO [place] TOMORROW AFTERNOON IN ORDER TO HAVE A CAPSULE STUDY DONE THERE TUESDAY. PT DENIED PAIN OR DISCOMFORT THIS SHIFT. DR JORDAN AWARE OF PT'S BLOODY STOOLS. NO NEW ORDERS RECEVIED THIS EVENING. PT CURRENTLY RESTING IN BED. CALL LIGHT IS WITHIN REACH,. HOURLY ROUNDING PERFORMED. FALL PRECAUITIONS IN PLACE.
[2019-09-03 23:20] LABS: HEMATOCRIT 22.8 % (37.0-47.0); HEMOGLOBIN 7.7 gm/dL (12.0-15.0)
[2019-09-04] VITALS: BP 96/47
--- NOTE | 2019-09-04 02:08 | NUR ---
ASSUMED CARE OF PT AT 1900. PT IS ALER AND ORIENTED. VSS. PERRLA. NO COMPLAINTS OF PAIN. HGB 7.7. WILL REDRAW AT 3. PT IS IN SINUS RYTHM ON THE TELEMETRY. PT IS RESTING COMFORTABLY IN BED. RESPIRATIONS ARE EVEN AND NONLABORED. WILL CONTINUE TO MONITOR PT.
[2019-09-04 02:41] LABS: HEMATOCRIT 24.4 % (37.0-47.0); HEMOGLOBIN 8.2 gm/dL (12.0-15.0)
[2019-09-04 04:19] VITALS: BP 125/66
[2019-09-04 08:00] VITALS: BP 126/63
--- NOTE | 2019-09-04 08:16 | NUR ---
Cm contacted [facility] Transfer team, referral was received yesterday, will know more after bed huddle at 10am. CM to call back around 11 to check status of transfer.
[2019-09-04 12:16] VITALS: BP 116/51
--- NOTE | 2019-09-04 12:55 | NUR ---
ASSUMED PT CARE AT 0800, AOX4, UP SBA, O2 SAT 90'S RA. TRACING SR ON TELE. PT DENIES PAIN. PT TO TRANSFER TO [place] FOR CAPSULE ENDOSCOPY. CM ON BOARD FOR ARRANGE TRANSFER. WAITING FOR CALL BACK TODAY. IVF INFUSSING ORDER. ACCU CHECK, VSS, AM ASSESSMENT CHARTED, MEDS GIVEN PER MAR. HAS BM THIS AM, NO BLOOD NOTED ON STOOL. MONITOR HGB. HOURLY ROUNDING, CALL LIGHT WITHIN REACH, WILL CONTINUE TO MONITOR.
--- NOTE | 2019-09-04 13:54 | CON ---
[address] [address] CONSULTATION Name: VELIA ZAMORA Room: [address] IN M.R.#: [id number] Admission: 08/31/19 Attend Phys: Raj Rapp Discharge: Date of : 56 Report #: [id number] THIS REPORT FOR: //name// cc: Clarence Morrison Steve T. DO ~ THIS REPORT FOR: //name// CC: Raj Perales DATE OF SERVICE: 09/01/2019 REASON FOR CONSULT: Active gastrointestinal bleed. HISTORY OF PRESENT ILLNESS: This is a 58-year-old female who is well known to our service as she has had recent admission on end of July with GI bleed. At that time, the patient underwent upper and lower endoscopy. The upper endoscopy was negative and the lower endoscopy showed large amount of old and altered blood in the TI. The patient underwent enteroscopy which was negative. Capsule endoscopy also did not reveal any sign of GI bleeds. Subsequently, the patient was discharged and told that if she rebleeds, she should come to hospital and the plan will be to get a stat RBC tag scan followed by CT angiogram with possible coiling. The patient started having GI bleed once again, which prompted her to come to the Emergency Room. During her Emergency Room visit, she was found to be extremely anemic and was transfused with 2 units of packed RBCs. RBC tag scan and CT angiogram were obtained yesterday, which did not reveal any active bleeding. Overnight, the patient has been bleeding and has required more blood transfusions. The patient denies nausea, vomiting, fever, and chills. PAST MEDICAL HISTORY: Significant for history of intermittent GI bleeds, hypertension, diabetes mellitus type 2, coronary artery disease status post stenting, anxiety disorder, pleural effusion, and GERD. ALLERGIES: SIGNIFICANT FOR SULFAMETHOXAZOLE AND TRIAMTERENE. MEDICATIONS: Please refer to MAR. SOCIAL HISTORY: The patient lives at home. Denies tobacco or alcohol use. FAMILY HISTORY: Noncontributory. PHYSICAL EXAMINATION: VITAL SIGNS: Reveals blood pressure of 123/78, respirations 18, pulse 85, and temperature 98.3. [place] [address] CONSULTATION Name: VELIA ZAMORA Room: [address]#: [id number] Admission: 08/31/19 Attend Phys: Raj Rapp Discharge: Date of : 56 Report #: [id number] LUNGS: Clear. CARDIOVASCULAR: Regular. ABDOMEN: Soft, nontender, and nondistended. LABORATORY DATA: Reveal sodium of 143, potassium 3.8, BUN is 27, creatinine 0.8, and glucose is 334. Liver function tests within normal limit except ALT of 87. Magnesium is 1.6, albumin 2.8, and total protein is 5.6. Iron level is 65 with iron saturation of 23 and TIBC of 279. INR is 1. WBC is 10.1 with hemoglobin of 7.4 after receiving 3 units of packed RBC, and platelets are 197. IMAGING: As discussed above. ASSESSMENT AND PLAN: The patient with history of recurrent gastrointestinal bleed with endoscopic evaluation and capsule endoscopy recently, which have been unrevealing. We will repeat CT angiogram and ask Interventional Radiology to coil the vessel once it is ____. Meanwhile, continue transfusing the patient as needed with packed RBC. <ELECTRONICALLY SIGNED> By: Georgia Arciniega MD 09/04/19 1354 1443 [id number] Arciniega MD /nt
[2019-09-04 14:48] LABS: HEMATOCRIT 21.4 % (37.0-47.0); HEMOGLOBIN 7.2 gm/dL (12.0-15.0)
[2019-09-04 15:45] VITALS: BP 114/55
--- NOTE | 2019-09-04 16:19 | NUR ---
[facility] Transfer Team number is [phone]
[2019-09-04 18:27] VITALS: BP 118/59
--- NOTE | 2019-09-04 18:46 | NUR ---
[facility] TRANSFER TEAM CALLED. [facility] HAS AVAILABLE ROOM TO ACCEPT PT. PROVIDER NOTIFIED. PT HAS ONGOING 1 UNIT OF BLOOD. STARTED AT 1835. HEMOGLOBIN IS 7.2, PER STANDING ORDER TO TRANFUSE BLOOD. WAITING FOR AMBULANCE TO TRANSFER.
== END 2019-09-04 18:57 | disposition short-term general hospital (02) | DRG 377 ==
LOC: M.ERS 14:53 → M.TBA-ER 16:47 → M.2W 16:47
PROVIDERS: Emergency Medicine; Internal Medicine; Internal Medicine Gastroenterology; ADMIT Family Medicine
PROC: 30233N1 Transfusion of Nonautologous Red Blood Cells into Peripheral Vein, Percutaneous Approach (ICD-10-PCS; principal; 2019-08-31)
DX: K92.2 Gastrointestinal hemorrhage, unspecified (principal); E43 Unspecified severe protein-calorie malnutrition; R65.10 Systemic inflammatory response syndrome (SIRS) of non-infectious origin without acute organ dysfunction; D62 Acute posthemorrhagic anemia; E78.00 Pure hypercholesterolemia, unspecified; F12.90 Cannabis use, unspecified, uncomplicated; I25.10 Atherosclerotic heart disease of native coronary artery without angina pectoris; F41.9 Anxiety disorder, unspecified; K76.0 Fatty (change of) liver, not elsewhere classified; E66.9 Obesity, unspecified; E78.5 Hyperlipidemia, unspecified; E11.65 Type 2 diabetes mellitus with hyperglycemia; K21.9 Gastro-esophageal reflux disease without esophagitis; I10 Essential (primary) hypertension; Z95.5 Presence of coronary angioplasty implant and graft; Z85.828 Personal history of other malignant neoplasm of skin; Z79.899 Other long term (current) drug therapy; Z79.84 Long term (current) use of oral hypoglycemic drugs; Z88.1 Allergy status to other antibiotic agents; Z88.2 Allergy status to sulfonamides; Z72.89 Other problems related to lifestyle; Z68.32 Body mass index [BMI] 32.0-32.9, adult

== ENCOUNTER 2019-09-16 10:42 | Inpatient (IN) | payer OTHER ==
[~2019-09-16] VITALS: Ht 162.6 cm; Wt 86.2 kg
--- NOTE | ~2019-09-16 | CON ---
[address] [address] CONSULTATION Name: VELIA ZAMORA Room: [address] IN M.R.#: [id number] Admission: 09/16/19 Attend Phys: Raj Rapp Discharge: Date of : 56 Report #: [id number] THIS REPORT FOR: //name// cc: Clarence Morrison Steve T. DO ~ THIS REPORT FOR: //name// CC: Raj Perales HISTORY OF PRESENT ILLNESS: A pleasant 58-year-old female with history of jejunal diverticulosis and diverticular bleed, who is presenting with weakness and bloody stools. The patient was initially seen at [facility] from 08/30 to 09/03 and then subsequently seen at [facility]. During that hospitalization at [facility], the patient underwent anterograde balloon enteroscopy and she was found to have bleeding from jejunal diverticulum. The bleeding was cauterized and the diverticulum was clipped. The patient was then subsequently discharged as she was found to have stable hemoglobin. The patient did relatively well after going home and had hard formed stools. However, yesterday the patient began feeling lightheaded and weak and began noticing dark jelly consistency stools. The patient then presented to the ER. In the ER, the patient was noted to have one episode of melena. PAST MEDICAL HISTORY: Hypertension, diabetes, hyperlipidemia, coronary artery disease. PAST SURGICAL HISTORY: The patient had resection of skin cancer from her left shoulder. SOCIAL HISTORY: The patient denies smoking or alcohol use. Does take marijuana intermittently. FAMILY HISTORY: No family history of colon cancer or Busby related neoplasia. REVIEW OF SYSTEMS: Comprehensive 10-point review of systems is negative except for what was mentioned in the HPI. PHYSICAL EXAMINATION: VITAL SIGNS: The patient's blood pressure 103/56, pulse rate 78, respiratory rate 15, temperature 36.4. GENERAL: The patient is alert, awake, oriented x 3. HEENT: Pupils are equal, round, reactive to light and accommodation. Mucous membranes are moist. There is no congestion. LUNGS: Clear to auscultation bilaterally. CARDIOVASCULAR: Rate and rhythm regular, S1, S2 present. ABDOMEN: Soft. There is no distention, guarding or rigidity. EXTREMITIES: Warm, well perfused. [place] [address] CONSULTATION Name: VELIA ZAMORA Room: [address]#: [id number] Admission: 09/16/19 Attend Phys: Raj Rapp Discharge: Date of : 56 Report #: [id number] SKIN: Warm and dry. LABORATORY DATA: Hemoglobin 8.6, hematocrit 26.4. This dropped down to 6.6 and 20.3, platelet count 458. INR 1.0. BUN 13, creatinine 0.8. IMAGING: CT abdomen and pelvis, diffuse moderate stool throughout the colon suggesting constipation. No inflammatory components of diverticulitis or colitis. ASSESSMENT AND PLAN: A pleasant 58-year-old female with history of jejunal diverticulosis, presenting with upper gastrointestinal bleeding. The patient's previous area of jejunal diverticulosis was tattooed and clipped. Therefore, I would recommend performing an anterograde push enteroscopy to evaluate this further. Further recommendations can be based on the results of the endoscopy. Keep the patient n.p.o. past midnight for the procedure. By: [id number] Peoples MD /nt
[~2019-09-16 10:42] MED LIST changes: +PROTONIX40 M4 PO
[2019-09-16 10:47] VITALS: BP 134/56
[2019-09-16 11:29] LABS: ABSOLUTE EOSINOPHILS 0.1 thou/uL (0.0-0.7); ABSOLUTE MONOCYTES 0.4 thou/uL (0.0-1.2); ABSOLUTE NEUTROPHILS 3.5 thou/uL (1.6-8.1); BASOPHILS 0.2 %; EOSINOPHILS 1.9 %; HEMATOCRIT 26.4 % (37.0-47.0); HEMOGLOBIN 8.6 gm/dL (12.0-15.0); LYMPHOCYTES 20.6 %; MCH 28.9 pg (26.0-34.0); MCHC 32.7 g/dL (28.0-37.0); MCV 88.5 fL (80.0-100.0); MONOCYTES 7.3 %; MPV 7.4 fl. (7.2-11.1); NUCLEATED RBCS 0 /100WBC; PLATELET COUNT* 458 thou/uL (150-400); RBC 2.98 mil/uL (4.20-5.00); RDW-CV 14.2 % (10.5-14.5)
[2019-09-16 11:37] LABS: CALCIUM 8.6 mg/dL (8.5-10.1); CREATININE 0.9 mg/dL (0.6-1.3); POTASSIUM 3.8 mmol/L (3.5-5.1)
[2019-09-16 11:45] LABS: URINE BILIRUBIN NEGATIVE (Negative); URINE BLOOD NEGATIVE (Negative); URINE CLARITY CLEAR; URINE COLOR YELLOW; URINE GLUCOSE-RANDOM NEGATIVE (Negative); URINE KETONES NEGATIVE (Negative); URINE LEUKOCYTES-REFLEX NEGATIVE (Negative); URINE NITRITE-REFLEX NEGATIVE (Negative); URINE PROTEIN NEGATIVE (Negative); URINE SPECIFIC GRAVITY >= 1.030 (1.005-1.030); URINE UROBILINOGEN 0.2 E.U./dl (0.2-1.0)
[2019-09-16 11:48] LABS: ALBUMIN 3.3 g/dL (3.4-5.0); TOTAL BILIRUBIN 0.7 mg/dL (<0.1-1.0); TOTAL PROTEIN 6.4 g/dL (6.4-8.2)
[2019-09-16 11:54] LABS: APTT 22.5 Seconds (25.0-31.3)
[2019-09-16 15:37] VITALS: BP 107/54
[2019-09-16 16:01] VITALS: BP 140/79
[2019-09-16] MEDS ORDERED: SLOW FE142 MG PO (17:32)
[2019-09-16 20:00] VITALS: BP 112/56
[2019-09-17] VITALS (7 sets, daily range): BP systolic 94–119; BP diastolic 54–74
[2019-09-17 03:57] LABS: HEMATOCRIT 20.3 % (37.0-47.0); MCH 29.2 pg (26.0-34.0); MCHC 32.7 g/dL (28.0-37.0); MCV 89.3 fL (80.0-100.0); MPV 7.2 fl. (7.2-11.1); RBC 2.28 mil/uL (4.20-5.00); RDW-CV 14.6 % (10.5-14.5); WBC 4.4 thou/uL (4.0-11.0)
[2019-09-17 04:14] LABS: HEMOGLOBIN 6.6 gm/dL (12.0-15.0)
[2019-09-17 04:33] LABS: ALBUMIN 2.7 g/dL (3.4-5.0); CALCIUM 7.5 mg/dL (8.5-10.1); CREATININE 0.8 mg/dL (0.6-1.3); MAGNESIUM 1.6 mg/dL (1.8-2.4); POTASSIUM 3.4 mmol/L (3.5-5.1); TOTAL BILIRUBIN 0.5 mg/dL (<0.1-1.0); TOTAL PROTEIN 5.1 g/dL (6.4-8.2)
--- NOTE | 2019-09-17 10:10 | EKG ---
[place] [address] ELECTROCARDIOGRAM REPORT Name: VELIA ZAMORA Room: [address] ADM IN M.R.#: [id number] Admission: 09/16/19 Attend Phys: Raj phipps Sa Discharge: Date of : 56 Date of Service: 09/16/19 1103 Report #: [id number] THIS REPORT FOR: //name// [facility] ED Test Date: 2019-09-16 Test Time: 11:03:25 Pat Name: VELIA ZAMORA Department: Room: [facility] Gender: F [employer]: : 1960 Requested By: Lenora May Order Number: [id number] MD: Wyatt Contreras Measurements Intervals [place] Rate: 94 P: 52 SC: 128 QRS: 40 QRSD: 88 T: 13 QT: 359 QTc: 449 Interpretive Statements Sinus rhythm Compared to ECG 08/31/2019 15:30:59 Sinus tachycardia no longer present T-wave abnormality no longer present Electronically Signed On 09-17-2019 10:09:00 CDT by Wyatt Contreras [email or web address] <ELECTRONICALLY SIGNED> By: Wyatt Contreras MD, FAC 09/17/19 1009 1103 1103 Wyatt Contreras MD, [facility] /EPI
[2019-09-17 11:05] LABS: HEMATOCRIT 25.8 % (37.0-47.0); HEMOGLOBIN 8.3 gm/dL (12.0-15.0)
[2019-09-18] VITALS (7 sets, daily range): BP systolic 104–147; BP diastolic 53–77
[2019-09-18 16:00] LABS: ABSOLUTE EOSINOPHILS 0.2 thou/uL (0.0-0.7); ABSOLUTE LYMPHOCYTES 1.2 thou/uL (0.8-5.3); ABSOLUTE MONOCYTES 0.4 thou/uL (0.0-1.2); ABSOLUTE NEUTROPHILS 3.8 thou/uL (1.6-8.1); BASOPHILS 0.5 %; EOSINOPHILS 3.7 %; HEMOGLOBIN 8.2 gm/dL (12.0-15.0); LYMPHOCYTES 21.1 %; MCH 28.6 pg (26.0-34.0); MCHC 32.5 g/dL (28.0-37.0); MONOCYTES 7.1 %; MPV 7.1 fl. (7.2-11.1); NUCLEATED RBCS 0 /100WBC; PLATELET COUNT* 373 thou/uL (150-400); POLYS 67.6 %; RBC 2.85 mil/uL (4.20-5.00); RDW-CV 15.1 % (10.5-14.5); WBC 5.7 thou/uL (4.0-11.0)
[2019-09-19] VITALS (7 sets, daily range): BP systolic 106–130; BP diastolic 47–82
[2019-09-19 09:11] LABS: HEMATOCRIT 28.3 % (37.0-47.0); HEMOGLOBIN 9.4 gm/dL (12.0-15.0); MCH 29.2 pg (26.0-34.0); MCHC 33.2 g/dL (28.0-37.0); MPV 6.8 fl. (7.2-11.1); RBC 3.22 mil/uL (4.20-5.00); RDW-CV 15.3 % (10.5-14.5); WBC 5.3 thou/uL (4.0-11.0)
[2019-09-19 22:13] LABS: HEMATOCRIT 26.1 % (37.0-47.0); HEMOGLOBIN 8.3 gm/dL (12.0-15.0); MCHC 31.9 g/dL (28.0-37.0); MCV 87.7 fL (80.0-100.0); MPV 7.2 fl. (7.2-11.1); RBC 2.97 mil/uL (4.20-5.00); WBC 5.2 thou/uL (4.0-11.0)
[2019-09-20] VITALS: BP 151/67
[2019-09-20 04:00] VITALS: BP 135/67
[2019-09-20 05:54] LABS: HEMOGLOBIN 7.9 gm/dL (12.0-15.0); MCH 28.6 pg (26.0-34.0); MCHC 32.8 g/dL (28.0-37.0); MCV 87.2 fL (80.0-100.0); MPV 7.4 fl. (7.2-11.1); RBC 2.76 mil/uL (4.20-5.00); RDW-CV 14.9 % (10.5-14.5); WBC 4.3 thou/uL (4.0-11.0)
[2019-09-20 07:23] VITALS: BP 148/70
[2019-09-20 10:25] LABS: HEMATOCRIT 24.9 % (37.0-47.0); HEMOGLOBIN 8.2 gm/dL (12.0-15.0); MCH 28.5 pg (26.0-34.0); MCHC 32.8 g/dL (28.0-37.0); MCV 86.9 fL (80.0-100.0); MPV 7.1 fl. (7.2-11.1); RBC 2.86 mil/uL (4.20-5.00); RDW-CV 14.6 % (10.5-14.5); WBC 3.9 thou/uL (4.0-11.0)
[2019-09-20 12:23] VITALS: BP 143/79
[2019-09-20] MEDS ORDERED: PROTONIX40 M4 PO (14:59)
[2019-09-20] MEDS ORDERED: LOPRESSOR50 PO (14:59)
== END 2019-09-20 15:49 | disposition home or self-care (01) | DRG 377 ==
LOC: M.ERS 10:42 → M.2W 13:01 → M.TBA-ER 13:01 → M.2W 15:54
PROVIDERS: Internal Medicine; Internal Medicine Gastroenterology; Physician Assistant; ADMIT Family Medicine
PROC: 30233N1 Transfusion of Nonautologous Red Blood Cells into Peripheral Vein, Percutaneous Approach (ICD-10-PCS; principal; 2019-09-17)
PROC: 0DJ08ZZ Inspection of Upper Intestinal Tract, Via Natural or Artificial Opening Endoscopic (ICD-10-PCS; 2019-09-17)
DX: K57.91 Diverticulosis of intestine, part unspecified, without perforation or abscess with bleeding (principal); E43 Unspecified severe protein-calorie malnutrition; D62 Acute posthemorrhagic anemia; E78.00 Pure hypercholesterolemia, unspecified; I10 Essential (primary) hypertension; E11.65 Type 2 diabetes mellitus with hyperglycemia; I95.1 Orthostatic hypotension; I25.10 Atherosclerotic heart disease of native coronary artery without angina pectoris; E66.9 Obesity, unspecified; K76.0 Fatty (change of) liver, not elsewhere classified; E78.5 Hyperlipidemia, unspecified; F41.9 Anxiety disorder, unspecified; Z95.5 Presence of coronary angioplasty implant and graft; Z88.2 Allergy status to sulfonamides; Z88.8 Allergy status to other drugs, medicaments and biological substances; Z79.899 Other long term (current) drug therapy; Z79.84 Long term (current) use of oral hypoglycemic drugs; I25.2 Old myocardial infarction; Z68.32 Body mass index [BMI] 32.0-32.9, adult